=== PATIENT | male | born 1950 | race Caucasian/White ===

== ENCOUNTER → 2019-12-23 | Outpatient (CLI) | payer MEDICARE ==
[2019-12-23 09:24] LABS: BASOPHILS % (AUTO) 0 % (0-10); EOSINOPHILS # (AUTO) 0.4 10^3/uL (0.0-0.3); EOSINOPHILS % (AUTO) 6 % (0-10); HEMATOCRIT 43 % (40-54); HEMOGLOBIN 14.2 G/DL (13.3-17.7); LYMPHOCYTES % (AUTO) 30 % (12-44); MEAN CORPUSCULAR HEMOGLOBIN 31 PG (25-34); MEAN CORPUSCULAR HGB CONC 33 G/DL (32-36); MEAN CORPUSCULAR VOLUME 93 FL (80-99); MEAN PLATELET VOLUME 10.6 FL (7.4-10.4); MONOCYTES # (AUTO) 0.5 X 10^3 (0.0-1.0); MONOCYTES % (AUTO) 7 % (0-12); NEUTROPHILS # (AUTO) 3.7 X 10^3 (1.8-7.8); NEUTROPHILS % (AUTO) 57 % (42-75); PLATELET COUNT 234 10^3/uL (130-400); WHITE BLOOD COUNT 6.6 10^3/uL (4.3-11.0)
[2019-12-23 09:51] LABS: ALANINE AMINOTRANSFERASE 28 U/L (0-55); ALBUMIN 4.2 GM/DL (3.2-4.5); ALKALINE PHOSPHATASE 73 U/L (40-136); BILIRUBIN,TOTAL 0.6 MG/DL (0.1-1.0); BUN/CREATININE RATIO 16; CALCIUM 9.3 MG/DL (8.5-10.1); CARBON DIOXIDE 23 MMOL/L (21-32); CHLORIDE 108 MMOL/L (98-107); CHOLESTEROL 187 MG/DL (< 200); CREATININE SERUM 1.14 MG/DL (0.60-1.30); GFR ESTIMATED > 60; GLUCOSE 99 MG/DL (70-105); HDL CHOLESTEROL 43 MG/DL (40-60); POTASSIUM 4.2 MMOL/L (3.6-5.0); SODIUM 141 MMOL/L (135-145); TOTAL PROTEIN 7.2 GM/DL (6.4-8.2); TRIGLYCERIDES 148 MG/DL (<150); VLDL CHOLESTEROL 30 MG/DL (5-40)
[2019-12-23 09:53] LABS: BAND NEUTROPHILS 0 %; BASOPHILS % (MANUAL) 0 %; EOSINOPHILS % (MANUAL) 5 %; LYMPHOCYTES % (MANUAL) 35 %; MONOCYTES % (MANUAL) 7 %; NEUTROPHILS % (MANUAL) 53 %
[2019-12-23 09:54] LABS: RBC MORPH NORMAL
== END ==
LOC: LAB 09:10
PROVIDERS: ATTEND Nurse Practitioner Family
DX: E78.2 Mixed hyperlipidemia (principal); I10 Essential (primary) hypertension
CPT/HCPCS: 36415; 80053; 80061; 84443; 85007; 85027

== ENCOUNTER → 2021-02-11 | Outpatient (CLI) | payer MEDICARE ==
[2021-02-11 14:16] LABS: BASOPHILS # (AUTO) 0.1 10^3/uL (0.0-0.1); BASOPHILS % (AUTO) 1 % (0-10); EOSINOPHILS # (AUTO) 0.5 10^3/uL (0.0-0.3); EOSINOPHILS % (AUTO) 6 % (0-10); HEMATOCRIT 40 % (40-54); HEMOGLOBIN 13.1 g/dL (13.3-17.7); LYMPHOCYTES % (AUTO) 21 % (12-44); MEAN CORPUSCULAR HEMOGLOBIN 30 pg (25-34); MEAN CORPUSCULAR HGB CONC 33 g/dL (32-36); MEAN CORPUSCULAR VOLUME 93 fL (80-99); MEAN PLATELET VOLUME 10.7 fL (9.0-12.2); MONOCYTES # (AUTO) 0.8 10^3/uL (0.0-1.0); MONOCYTES % (AUTO) 8 % (0-12); NEUTROPHILS % (AUTO) 64 % (42-75); PLATELET COUNT 303 10^3/uL (130-400); WHITE BLOOD COUNT 9.3 10^3/uL (4.3-11.0)
[2021-02-11 14:37] LABS: ALANINE AMINOTRANSFERASE 26 U/L (0-55); ALBUMIN 3.8 GM/DL (3.2-4.5); ALKALINE PHOSPHATASE 90 U/L (40-136); BILIRUBIN,TOTAL 0.5 MG/DL (0.1-1.0); BUN/CREATININE RATIO 15; CALCIUM 8.8 MG/DL (8.5-10.1); CARBON DIOXIDE 26 MMOL/L (21-32); CHLORIDE 109 MMOL/L (98-107); CREATINE KINASE 87 U/L (30-200); CREATININE SERUM 1.09 MG/DL (0.60-1.30); GFR ESTIMATED > 60; GLUCOSE 107 MG/DL (70-105); POTASSIUM 3.6 MMOL/L (3.6-5.0); SODIUM 143 MMOL/L (135-145); TOTAL PROTEIN 6.9 GM/DL (6.4-8.2)
--- NOTE | 2021-02-11 16:20 | Diagnostic Imaging Report ---
INDICATION: Chest pain, shortness of breath. TECHNIQUE: PA and lateral views were obtained. FINDINGS: The heart size is normal. There is a small right pleural effusion. There is no pneumothorax. The mediastinum is unremarkable. There is no pneumonia. IMPRESSION: Small right pleural effusion; otherwise, unremarkable. Dictated by: Dictated on workstation # [id number]
== END ==
LOC: CARD 13:49
PROVIDERS: ATTEND Nurse Practitioner Family
DX: J90 Pleural effusion, not elsewhere classified (principal)
CPT/HCPCS: 36415; 71046; 80053; 82550; 84484; 85025; 93005

== ENCOUNTER 2021-02-22 09:30 | Outpatient (RCR) | payer MEDICARE ==
[2021-02-27] MEDS ORDERED: ATOR20TA66 PO (11:39)
[2021-02-27] MEDS ORDERED: ASPI-999 PO (11:39)
[2021-02-27] MEDS ORDERED: LISI10TA25 PO (11:39)
[2021-02-28] MEDS ORDERED: CLOP75TA28 PO (06:12)
[2021-02-28] MEDS ORDERED: CLOP75TA69 PO (10:04)
== END 2021-05-23 | disposition home or self-care (01) ==
LOC: CARD 09:30
PROVIDERS: ATTEND Internal Medicine Cardiovascular Disease
DX: I11.9 Hypertensive heart disease without heart failure (principal); I44.1 Atrioventricular block, second degree
CPT/HCPCS: 93225; 93226; 93306

== ENCOUNTER → 2021-02-25 | Outpatient (CLI) | payer MEDICARE ==
[~2021-02-25] MED LIST: ASPI-999 PO; ATOR20TA66 PO; CATHETER FLUSH 10 ML SYR IV PRN; HOLD METFORMIN - RECEIVED CONTRAST 20 ML VIAL IV SCH; IOHEXOL 350 MG/ML 100 ML (OMNIPAQUE 350) VIAL IV ONE; LISI10TA25 PO; NS 100 ML (IVPB) BAG IV ONE
--- NOTE | 2021-02-25 13:40 | Diagnostic Imaging Report ---
PROCEDURE: CT angiography of the head and CT angiography of the neck with and without contrast. TECHNIQUE: Contiguous noncontrast images were obtained from the skull base through the vertex. After intravenous contrast administration, helical CT angiography of the neck was performed. Source data was reformatted into 3D MIP projections. Delayed post contrast acquisition was also obtained. Auto Exposure Controls were utilized during the CT exam to meet ALARA standards for radiation dose reduction. INDICATION: Occlusion and stenosis of carotid arteries. COMPARISON: None available. FINDINGS: CTA NECK: Aortic arch is normal. Great vessels of the aortic arch are widely patent. The common carotid arteries are normal without dissection or stenosis. Atherosclerotic plaquing results in approximately 40% luminal narrowing at the origin of the ICA per NASCET criteria. There is no luminal narrowing at the origin of the left ICA per NASCET criteria. The cervical divisions of the internal carotid arteries are widely patent. The origins of the vertebral arteries are normal, and vertebral arteries are codominant. There is no stenosis or dissection within the vertebral arteries. No cervical lymphadenopathy. Lung apices are clear. Thyroid is normal. Mild degenerative changes within the cervical spine. CTA HEAD: Pre contrast imaging shows no intracranial hyperdense hemorrhage or space-occupying mass. No hydrocephalus or midline shift. Senescent mineralizations are present in the bilateral basal ganglia. Angiogram imaging shows normal distal internal carotid arteries without luminal narrowing. There is no carotid terminus aneurysm on either side. The M1 and M2 divisions of the middle cerebral arteries are normal. Anterior cerebral arteries are normal. No anterior communicating artery aneurysm. Basilar artery is patent and has no terminal aneurysm. Posterior cerebral arteries have a conventional origin and there is no aneurysm. Posterior communicating arteries are normal. No pathologic enhancement on delayed phase imaging. The dural venous sinuses are patent. IMPRESSION: 1. Approximately 40% stenosis at the origin of the right ICA due to atherosclerotic plaquing. 2. No luminal narrowing at the left ICA origin. 3. No intracranial occlusion or aneurysm. Dictated by: Dictated on workstation # [id number]
== END ==
LOC: RAD 11:42
PROVIDERS: ATTEND Internal Medicine Cardiovascular Disease
DX: I65.29 Occlusion and stenosis of unspecified carotid artery (principal)
CPT/HCPCS: 70496; 70498

== ENCOUNTER 2021-02-27 13:00 | Day surgery (SDC) | payer MEDICARE ==
[~2021-02-27] VITALS: Ht 170 cm; Wt 86.2 kg
[2021-02-27] VITALS (16 sets, daily range): BP systolic 153–186; BP diastolic 68–86
[2021-02-27 11:29] LABS: HEMOGLOBIN 14.5 g/dL (13.3-17.7); MEAN PLATELET VOLUME 10.4 fL (9.0-12.2); WHITE BLOOD COUNT 7.9 10^3/uL (4.3-11.0)
[2021-02-27 11:50] LABS: PROTHROMBIN TIME PATIENT 13.8 SEC (12.2-14.7)
[2021-02-27 11:57] LABS: ALANINE AMINOTRANSFERASE 21 U/L (0-55); ALBUMIN 4.4 GM/DL (3.2-4.5); ALKALINE PHOSPHATASE 74 U/L (40-136); BILIRUBIN,TOTAL 0.7 MG/DL (0.1-1.0); BUN/CREATININE RATIO 16; CALCIUM 9.2 MG/DL (8.5-10.1); CARBON DIOXIDE 24 MMOL/L (21-32); CHLORIDE 108 MMOL/L (98-107); CHOLESTEROL 180 MG/DL (< 200); CREATININE SERUM 1.14 MG/DL (0.60-1.30); GFR ESTIMATED > 60; GLUCOSE 93 MG/DL (70-105); HDL CHOLESTEROL 43 MG/DL (40-60); POTASSIUM 3.9 MMOL/L (3.6-5.0); SODIUM 142 MMOL/L (135-145); TOTAL PROTEIN 7.6 GM/DL (6.4-8.2); TRIGLYCERIDES 146 MG/DL (<150); VLDL CHOLESTEROL 29 MG/DL (5-40)
--- NOTE | 2021-02-27 12:08 | Diagnostic Imaging Report ---
INDICATION: Chest pain. COMPARISON: 02/11/2021. FINDINGS: Single frontal view of the chest demonstrates normal heart size and pulmonary vascularity. The lungs are well aerated and clear. No large pleural effusion or pneumothorax is seen. The visualized osseous structures show no acute abnormalities. IMPRESSION: 1. No acute cardiopulmonary process. Dictated by: Dictated on workstation # [id number]
[~2021-02-27 13:00] MED LIST changes: -CATHETER FLUSH 10 ML SYR IV PRN; +HEParin (CATH LAB) 2,000 ML IV ONE; -HOLD METFORMIN - RECEIVED CONTRAST 20 ML VIAL IV SCH; -IOHEXOL 350 MG/ML 100 ML (OMNIPAQUE 350) VIAL IV ONE; +LIDOCAINE 1% INJ 20 ML 20 ML VIAL ONE; -NS 100 ML (IVPB) BAG IV ONE; +NS IV 1000 ML 1,000 ML IV SCH; +NS IV 1000 ML 1,000 ML ONE
[2021-02-27] MEDS ORDERED: MIDAZOLAM 5 MG/5 ML (VERSED) VIAL ONE (13:16)
[2021-02-27] MEDS ORDERED: fentaNYL INJ 100 MCG/2 ML AMP ONE (13:16)
[2021-02-27] MEDS ORDERED: HEParin 1000 UNIT/ML (10ML VIAL) FOR BOLUS ONE (14:03)
[2021-02-27] MEDS ORDERED: NS IV 1000 ML 1,000 ML ONE (14:05)
[2021-02-27] MEDS ORDERED: ASPIRIN 325 MG (5 GR) TABLET ONE (14:19)
[2021-02-27] MEDS ORDERED: CLOPIDOGREL 300 MG (PLAVIX) TABLET PO ONE (14:20)
--- NOTE | 2021-02-27 14:25 | Cardiac Procedure Note-CS/ASA ---
Pre-Procedure Note Pre-Op Procedure Note H&P Reviewed The H&P was reviewed, patient examined and no changes noted. Date H&P Reviewed: Feb 27, 2021 Time H&P Reviewed: 14:25 Conscious Sedation Pre-Proced Time 14:25 ASA Score 3 For ASA 3 and 4: Consider anesthesia and medical clearance. Also, for patients with a history of failed moderate sedation consider anesthesia. Airway Lungs Heart ASA score ASA 1: a normal healthy patient ASA 2: a patient with a mild systemic disease (mid diabetes, controlled hypertension, obesity x ASA 3: a patient with a severe systemic disease that limits activity (angina, COPD, prior Myocardial infarction) ASA 4: a patient with an incapacitating disease that is a constant threat to life (CHF, renal failure) ASA 5: a moribund patient not expected to survive 24 hrs. (ruptured aneurysm) ASA 6: a declared brain- patient whose organs are being harvested. For emergent operations, add the letter E after the classification Mallampati Classification Grade 3 Sedation Plan Analgesia, Amnesia, Plan communicated to team members, Discussed options with patient/fam, Discussed risks with patient/fam The patient is an appropriate candidate to undergo the planned procedure, sedation, and anesthesia. The patient immediately re-assessed prior to indication. GIANLUCA RODRIGUEZ MD Feb 27, 2021 2:25 pm
[2021-02-27] MEDS ORDERED: PATIENT MAY USE OWN MEDS, ALL PO SCH (14:30)
--- NOTE | 2021-02-27 14:32 | Cardiac Cath Report ---
Cardiac Cath Report Physician (s)/[employer] Instructor (s) Physician GIANLUCA RODRIGUEZ MD Pre-Procedure Diagnosis Pre-Procedure Diagnosis: Chest pain, coronary artery disease Post-Procedure Note Procedure Start Date: Feb 27, 2021 Name of Procedure: Left heart catheterization Primary stenting to the right coronary artery Findings/Procedure Note PROCEDURE NOTE: 70 years old gentleman with history of hypertension, hyperlipidemia, has been having chest pain, had an abnormal stress test, scheduled for cardiac physician possible PTCA. After explaining the procedure to the patient, all pros and cons were explained, all questions were answered. The patient signed the consent and then he was placed on the cardiac catheterization laboratory. Groin was prepped SL fashion local anesthesia was used. Sheath placed in the femoral artery. Barak right and left catheter were used to access the coronary system. Pigtail was used to access the left ventricular cavity. Left ventriculogram was not done, pressure was measured Aortic arch angiogram was done, patient is known to have severe carotid stenosis, I evaluated the arch and the origin of his carotids Patient has severe stenosis in the right coronary artery, 6000 units of heparin were given, if our guide was used, a BMW wire was advanced and parked distally, primary stenting using Eden 2.5 x 23 mm stent deployed under 15 rosalia up to 2.75 mm with excellent results, patient had mild coronary spasm. At the end of the procedure the sheath was removed. Closure device was used FINDINGS: Hemodynamics LV 137/13, end-diastolic pressure of 13 Aorta 140/59 mean of 92 ANATOMY: Left Main is free of obstructive disease Left Anterior Descending is calcified with mild tortuosity mild disease at the midportion nonobstructive disease Left Circumflex has mild disease nonobstructive disease Right Coronory Artery has severe stenosis in the midportion successful primary stenting using Eden 2.5 x 23 mm expanded to 2.75 mm with excellent results LV Gram was not done, pressure was measured Aortic arch angiogram was done, patient is known to have carotid stenosis, aortic arch is normal in size, no dissection or aneurysm, tortuous right carotid artery, mild disease nonobstructive disease, the left carotid artery also tortuous with no significant obstructive disease noted, subclavian artery is normal CONCLUSION: 1. Severe mid right coronary artery stenosis successful primary stenting using Eden 2.5 x 23 mm expanded to 2.75 mm with excellent results 2. Otherwise mildly calcified coronary system with mild disease nonobstructive disease 3. Normal aortic arch, tortuous bilateral carotid system, no significant obstructive disease was noted 4. Normal left ventricular end-diastolic pressure DISCUSSION AND RECOMMENDATION: Maximizing medical therapy. Continue to monitor Anesthesia Type: Conscious Sedation Estimated blood loss (mL): 25 ml Contrast Amount: 98 ml Total Radiation Dose: 963 mGy Post-Procedure Diagnosis Post-operative diagnosis: Chest pain Coronary artery disease Hypertension Hyperlipidemia GIANLUCA RODRIGUEZ MD Feb 27, 2021 2:32 pm
[2021-02-27] MEDS: NS IV 1000 ML 1,000 ML IV SCH (15:00)
[2021-02-28] VITALS (9 sets, daily range): BP systolic 132–171; BP diastolic 56–77
[2021-02-28] MEDS: NS IV 1000 ML 1,000 ML IV SCH (00:29)
[2021-02-28 03:13] LABS: HEMOGLOBIN 12.5 g/dL (13.3-17.7); WHITE BLOOD COUNT 6.3 10^3/uL (4.3-11.0)
[2021-02-28 03:34] LABS: BUN/CREATININE RATIO 16; CARBON DIOXIDE 20 MMOL/L (21-32); CHLORIDE 110 MMOL/L (98-107); CREATININE SERUM 1.03 MG/DL (0.60-1.30); GFR ESTIMATED > 60; GLUCOSE 97 MG/DL (70-105); POTASSIUM 4.3 MMOL/L (3.6-5.0); SODIUM 140 MMOL/L (135-145)
[2021-02-28] MEDS ORDERED: CLOP75TA28 PO (06:12)
--- NOTE | 2021-02-28 06:13 | Discharge Inst-Post CATH ---
Discharge Inst-CATH/EP Problems Reviewed?: Yes Post Cardiac Cath/EP D/C Inst Follow Up/Plan Appointment with Dr Shannon in 2-4 weeks <b>CARDIAC CATH/EP PROCEDURE DISCHARGE INSTRUCTIONS</b> ACTIVITY * Go Home directly and rest. * Limit activity of the leg (or wrist if it was used) for 7 days including aerobics, swimming, jogging, bicycling, etc. * Restrict stair-climbing for 7 days if possible, if not, climb up with your non-cath leg, then bring together on the same step. * Avoid lifting, pushing, pulling or excessive movement of the affected extremity for 7 days. * Customary sexual activity may be resumed after 2 days-use caution not to use a position that strains or causes pain to the affected extremity. * No driving for 24 hours. * NO SMOKING. * Avoid straining for bowel movements for 7 days. * Gentle walking on level ground is allowed. * Returning to work will depend on the type of procedure and the results. Your doctor will discuss this with you. CALL YOUR DOCTOR FOR ANY OF THE FOLLOWING: *If bleeding from the puncture site occurs- Apply gentle pressure to site with clean cloth and call your doctor or EMS. * If a knot or lump forms under the skin, increases in size, or causes pain. * If bruising appears to be worsening or moving further down your leg instead of disappearing. * Temperature above 101 F. CARE OF YOUR GROIN INCISION; * Bruising or purple discoloration of the skin near the puncture site is common. * You may shower only, no bathtub bathing for 5 days. Be careful to avoid slipping as your leg may feel stiff. * If a closure device was used on your femoral artery, please see the attached guide regarding care of the device and your leg. * Leave dressing on FOR 24 hours. CARE OF YOUR WRIST INCISION; * Bruising or purple discoloration of the skin near the puncture site is common. * You may shower. * DO NOT submerge wrist. * Leave dressing on FOR 24 hours. GIANLUCA SHANNON MD Feb 28, 2021 06:13
[2021-02-28] MEDS ORDERED: ASPIRIN E.C. 81 MG (ECOTRIN) TAB PO SCH (09:00)
[2021-02-28] MEDS ORDERED: CLOPIDOGREL 75 MG (PLAVIX) TABLET PO SCH (09:00)
[2021-02-28] MEDS ORDERED: lisINopril 10 MG (PRINIVIL) TABLET PO SCH (09:00)
--- NOTE | 2021-02-28 09:08 | Cardiology Progress Note ---
Subjective Date Seen by Provider: Feb 28, 2021 Time Seen by Provider: 09:07 Subjective/Events-last exam Patient is feeling well, site is healing well. No chest pain Review of Systems General: No Chills, No Night Sweats, No Fatigue, No Malaise, No Appetite, No Other HEENT: No Head Aches, No Visual Changes, No Eye Pain, No Ear Pain, No Dysphasia, No Sinus Congestion, No Post Nasal Drip, No Sore Throat, No Other Pulmonary: No Dyspnea, No Cough, No Pleuritic Chest Pain, No Other Cardiovascular: No: Chest Pain, Palpitations, Orthopnea, Paroxysmal Noc. Dyspnea, Edema, Lt Headedness, Other Objective-Cardiology Exam Last Set of Vital Signs Vital Signs 02/28/21 02/28/21 00:00 04:00 Temp 37.0 Pulse 60 Resp 16 B/P (MAP) 171/76 (107) Pulse Ox 97 O2 Delivery Room Air Capillary Refill : Less Than 3 Seconds I&O Intake and Output 02/28/21 00:00 Intake Total 100 ml Output Total 400 ml Balance -300 ml Intake Oral 100 ml Output Urine Total 400 ml Daily Weight Change No General: Alert, Oriented X3, Cooperative HEENT: Atraumatic, PERRLA Neck: Supple, No JVD, No Thyromegaly Lungs: Clear to Auscultation, Normal Air Movement Heart: Regular Rate, Normal S1, Normal S2, No Murmurs Abdomen: Normal Bowel Sounds, Soft, No Tenderness, No Hepatosplenomegaly, No Masses Extremities: No Clubbing, No Cyanosis, No Edema, Normal Pulses, No Tenderness/Swelling Skin: No Rashes, No Breakdown, No Significant Lesion Neuro: Normal Gait, Normal Speech, Strength at 5/5 X4 Ext, Normal Tone, Sensation Intact Psych/Mental Status: Mental Status NL, Mood NL Results Lab Laboratory Tests 02/27/21 11:18 02/28/21 02:55 A/P-Cardiology Admission Diagnosis Coronary artery disease Hypertension Hyperlipidemia Assessment/Plan Coronary artery disease status post stenting to the right coronary artery with excellent result Site is healing well, had radial access with no complication Hypertension, restart home medication monitor blood pressure Hyperlipidemia, monitor lipids Patient was educated about taking aspirin and Plavix for the next year, educated on compliance with medication I will arrange for follow-up as an outpatient GIANLUCA RODRIGUEZ MD Feb 28, 2021 09:08
[2021-02-28] MEDS ORDERED: CLOP75TA69 PO (10:04)
== END 2021-02-28 10:25 ==
LOC: CSD 14:50 → CATH 02-28 10:25
PROVIDERS: ATTEND Internal Medicine Cardiovascular Disease
DX: I25.10 Atherosclerotic heart disease of native coronary artery without angina pectoris (principal); I44.1 Atrioventricular block, second degree; I65.23 Occlusion and stenosis of bilateral carotid arteries; I10 Essential (primary) hypertension; E78.5 Hyperlipidemia, unspecified; Z79.899 Other long term (current) drug therapy; Z79.82 Long term (current) use of aspirin
CPT/HCPCS: 71045; 80048; 80053; 80061; 85027 ×2; 85610; 85730; 87081; 93005; 93458; C1760; C1769; C1874; C1887; C1894; C9600; 36415

== ENCOUNTER → 2022-03-26 | Outpatient (CLI) | payer MEDICARE ==
[~2022-03-26] MED LIST changes: +CLOP75TA28 PO; +CLOP75TA69 PO; -HEParin (CATH LAB) 2,000 ML IV ONE; -LIDOCAINE 1% INJ 20 ML 20 ML VIAL ONE; -NS IV 1000 ML 1,000 ML IV SCH; -NS IV 1000 ML 1,000 ML ONE
== END ==
LOC: CARD 08:25
PROVIDERS: ATTEND Internal Medicine Cardiovascular Disease
DX: I35.0 Nonrheumatic aortic (valve) stenosis (principal); I10 Essential (primary) hypertension
CPT/HCPCS: 93306

== ENCOUNTER → 2022-04-21 | Outpatient (CLI) | payer MEDICARE ==
[~2022-04-21] MED LIST changes: +CATHETER FLUSH 10 ML SYR IVP SCH
[2022-04-21 08:48] VITALS: BP 137/67
--- NOTE | 2022-04-21 12:02 | Cardiology Stress Test Report ---
Stress Test Report Date of Procedure/Referring: Date of Procedure: April 21, 2022 PCP Tee Denis MD Admitting Physician Admitting Physician: Attending Physician: Addi Shannon MD Indications: HTN Baseline Heart Rate: 45 Baseline Blood Pressure: Blood Pressure Systolic: 137 Blood Pressure Diastolic: 67 Vital Signs Date Time Temp Pulse Resp B/P (MAP) Pulse Ox O2 Delivery O2 Flow Rate FiO2 04/21/22 08:48 45 137/67 (90) Baseline Vital Signs Vital Signs Date Time Temp Pulse Resp B/P (MAP) Pulse Ox O2 Delivery O2 Flow Rate FiO2 04/21/22 08:48 45 137/67 (90) Baseline EKG: Baseline EKG: Sinus bradycardia Summary: After explaining the procedure and details to the patient, he signed the consent and was brought to the stress nuclear laboratory. Patient exercised on standard Eliot protocol, EKG, heart rate and blood pressure were monitored continuously, resting and stress doses of radio tracer were injected, imaging was acquired and reviewed in the short axis, horizontal long axis and vertical long axis views Patient was able to exercise for a total of 4 minutes on Eliot protocol, METs 4.7 Maximum heart rate 136 Maximum blood pressure 219/88 Stress EKG, Minimal nondiagnostic changes Recovery EKG, Return to baseline TID: 0.97 SSS: 3 SDS: 3 EF: 56 Conclusion: 1. Fair exercise tolerance for a total of 4 minutes on standard Eliot protocol, 4.7 METS achieving 91% of maximal expected heart rate 2. Appropriate heart rate response to exercise with severe hypertensive response to exercise with peak blood pressure 219/88 returned to baseline during recovery 3. Nondiagnostic EKG changes with exercise return to baseline during recovery 4. No significant ischemia or infarction on SPECT images 5. Normal left ventricular size, ejection fraction 56% Copy Copies To 1: TEE DENIS MD, BASHAR J MD April 21, 2022 12:02
== END ==
LOC: CARD 08:00
PROVIDERS: ATTEND Internal Medicine Cardiovascular Disease
DX: I10 Essential (primary) hypertension (principal)
CPT/HCPCS: 78452; 93017; A9502

== ENCOUNTER → 2023-01-28 | Outpatient (CLI) | payer MEDICARE ==
[~2023-01-28] MED LIST changes: -CATHETER FLUSH 10 ML SYR IVP SCH; +CLOP-31 PO; -CLOP75TA69 PO
--- NOTE | 2023-01-28 14:32 | Diagnostic Imaging Report ---
EXAMINATION: Left hip radiographs, 2 views. COMPARISON: None. HISTORY: 72-year-old male, left hip pain. FINDINGS: There are vascular calcifications. The left hip is not dislocated. There is no joint space loss of the left hip, osteophyte formation, or subchondral cystic change. There is no acute fracture. IMPRESSION: Unremarkable radiographs of the left hip. Dictated by: Dictated on workstation # [id number]
--- NOTE | 2023-01-28 14:33 | Diagnostic Imaging Report ---
EXAMINATION: Lumbar spine radiographs, 3 views. COMPARISON: None. HISTORY: 72-year-old male, chronic low back pain. FINDINGS: There are 5 lumbar-type vertebral bodies. There is severe disc height loss at L5-S1. There is moderate disc height loss at L1-L2. There are multilevel endplate degenerative related changes. There is no identified compression deformity or fracture. There are mild bilateral facet degenerative changes at L5-S1. There are atherosclerotic calcifications. IMPRESSION: 1. Severe disc degenerative changes at L5-S1 and moderate disc degenerative changes at L1-L2. 2. Additional multilevel mild disc degenerative changes of the thoracolumbar spine and mild facet degenerative changes bilaterally at L5-S1. Dictated by: Dictated on workstation # [id number]
--- NOTE | 2023-01-28 14:41 | Diagnostic Imaging Report ---
EXAMINATION: Sacroiliac joint radiographs, 3 views. COMPARISON: None. HISTORY: 72-year-old male, low back and sacroiliac pain. FINDINGS: The sacroiliac joint spaces are well preserved. There is no bone erosion. There is no bone ankylosis. IMPRESSION: 1. Unremarkable evaluation of the sacral iliac joints. 2. Please see separately dictated lumbar spine radiograph report for evaluation of the lumbar spine. Dictated by: Dictated on workstation # [id number]
== END ==
LOC: RAD 10:19
PROVIDERS: ATTEND Family Medicine
DX: M51.37 Other intervertebral disc degeneration, lumbosacral region (principal); M51.36 Other intervertebral disc degeneration, lumbar region; M51.35 Other intervertebral disc degeneration, thoracolumbar region; M47.817 Spondylosis without myelopathy or radiculopathy, lumbosacral region; M25.552 Pain in left hip
CPT/HCPCS: 72100; 72202; 73502

== ENCOUNTER → 2023-02-27 | Outpatient (RCR) | payer MEDICARE | END | disposition home or self-care (01) | PROVIDERS: ATTEND Nurse Practitioner Family | DX: M54.50 Low back pain, unspecified (principal) ==

== ENCOUNTER 2023-03-18 05:41 | Outpatient (CLI) | payer MEDICARE ==
[~2023-03-18] VITALS: Ht 170.2 cm; Wt 83.5 kg
[2023-03-19] MEDS ORDERED: ATOR40TA70 PO (10:17)
== END 2023-03-19 10:28 | disposition home or self-care (01) ==
LOC: PREOP 05:41
PROVIDERS: ATTEND Surgery
DX: Z01.818 Encounter for other preprocedural examination (principal)

== ENCOUNTER 2023-04-28 07:05 | Day surgery (SDC) | payer MEDICARE ==
[~2023-04-28] VITALS: Ht 170.2 cm; Wt 83.5 kg
[~2023-04-28 07:05] MED LIST changes: +ATOR40TA70 PO
[2023-04-28] MEDS ORDERED: LACTATED RINGERS 1,000 ML IV STA (07:10)
[2023-04-28 07:44] VITALS: BP 169/73
[2023-04-28] MEDS ORDERED: MIDAZOLAM 2 MG/2 ML (VERSED) VIAL ONE (08:44)
[2023-04-28] MEDS ORDERED: PROPOFOL INJECTION 50 ML IV ONE (08:44)
[2023-04-28] MEDS ORDERED: GLYCOPYRROLATE 0.2 MG/ML (ROBINUL) 2 ML VIAL ONE (08:48)
--- NOTE | 2023-04-28 09:09 | Discharge Inst-Simple/Standard ---
Discharge Inst-Standard Patient Instructions/Follow Up Plan of Care/Instructions/FU: 2 weeks Ted Activity as Tolerated: Yes Discharge Diet: Regular Diet RANDY FREEMAN DO April 28, 2023 09:09
[2023-04-28 09:10] VITALS: BP 105/58
--- NOTE | 2023-04-28 09:10 | Progress Note-Post Operative ---
Post-Operative Progess Note Surgeon (s)/Explosive Ordnance Disposal Technician (s) Surgeon RANDY FREEMAN DO Explosive Ordnance Disposal Technician: na Pre-Operative Diagnosis +cologuard Post-Operative Diagnosis hepatic flexure polyp Procedure & Operative Findings Date of Procedure 04/28/23 Procedure Performed/Findings colonoscopy c hot bx polypectomy Anesthesia Type per education and outreach coordinator Estimated Blood Loss Estimated blood loss (mL): none Specimens/Packing Specimens Removed hepatic flexure polyp RANDY FREEMAN DO April 28, 2023 09:10
[2023-04-28 09:15] VITALS: BP 109/59
[2023-04-28 09:51] VITALS: BP 109/59
--- NOTE | 2023-04-28 13:55 | OPERATIVE REPORT ---
DATE OF SERVICE: 04/28/2023 PREOPERATIVE DIAGNOSIS: Positive Cologuard test. POSTOPERATIVE DIAGNOSIS: Hepatic flexure polyp. PROCEDURE: Colonoscopy with hot biopsy polypectomy. SURGEON: Randy Jean DO. ANESTHESIA: Per SCALLOP DREDGER. ESTIMATED BLOOD LOSS: None. COMPLICATIONS: None. INDICATIONS: The patient is a 72-year-old male with positive Cologuard. He understands risks and benefits of procedure and wished to proceed. Consent was signed in chart. DESCRIPTION OF PROCEDURE: The patient was taken to endoscopy suite, placed in left lateral recumbent position. Timeout was performed. Digital rectal exam was performed. No palpable polyps, masses or ulcerations. Scope was inserted into the rectum and advanced all the way to the way to the cecum with minimal difficulty. Prep was adequate. Scope was then slowly retracted back. No polyps, masses or ulcerations within the cecum and the ascending colon. The hepatic flexure had a larger polyp greater than 1 cm present, hot biopsy polypectomy was performed. Scope was then continuously retracted back. No polyps, masses or ulcerations in the remainder of the transverse, descending and sigmoid colon. Once in the rectum, scope was retroflexed noting no other pathology. Scope was returned to its normal position, slowly withdrawn until completely removed. The patient tolerated the procedure well without complications, taken to recovery room in stable condition. RECOMMENDATIONS: The patient will need repeat colonoscopy in one year due to the size of polyp to make sure it has been eradicated. Any issues before that, will be seen at that time. The patient will follow up on pathology in 2 weeks. Job ID: [id number] DocumentID: [id number] Dictated Date: 04/28/2023 09:12:42 Hand Etcher Date: 04/28/2023 13:53:00 Dictated By: RANDY JEAN DO
--- NOTE | 2023-04-28 14:37 | Anesthesia-General Post-Op ---
MAC Patient Condition Mental Status/LOC: Same as Preop Cardiovascular: Satisfactory Nausea/Vomiting: Absent Respiratory: Satisfactory Pain: Controlled Complications: Absent Post Op Complications Complications None Follow Up Care/Instructions Patient Instructions None needed. Anesthesiology Discharge Order Discharge Order Patient is doing well, no complaints, stable vital signs, no apparent adverse anesthesia problems. No complications reported per nursing. YOKASTA CAIN CRNA April 28, 2023 14:37
== END 2023-04-28 10:02 | disposition home or self-care (01) ==
LOC: ENDO 07:05
PROVIDERS: ATTEND Surgery
DX: Z12.11 Encounter for screening for malignant neoplasm of colon (principal); D12.3 Benign neoplasm of transverse colon; Z87.891 Personal history of nicotine dependence; Z95.5 Presence of coronary angioplasty implant and graft